=== PATIENT | male | born 1990 | race Caucasian/White ===

== ENCOUNTER 2016-09-05 20:37 | Emergency (ER) | payer OTHER ==
[~2016-09-05] VITALS: Ht 170.2 cm; Wt 63.6 kg
[2016-09-05 20:47] VITALS: BP 148/67; PULSE 122; RESP 18; O2SAT 100
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
[2016-09-05 22:28] LABS: BASOPHILS % (AUTO) 0.5 % (0-3); MONOCYTES % (AUTO) 7.6 % (4-12); Mean Corpuscular Hemoglobin 29.4 pg (27.0-35.0); Mean Corpuscular Volume 85.4 fL (81-100); NEUTROPHILS % (AUTO) 69.3 % (40-74); Platelet Count 274 bil/L (150-400)
[2016-09-05 22:29] LABS: APPEARANCE,URINE CLEAR (CLEAR,HAZY); COLOR,URINE YELLOW (YELLOW); OCCULT BLOOD,URINE NEGATIVE (NEGATIVE); UROBILINOGEN,URINE NORMAL (NORMAL)
[2016-09-05 23:22] VITALS: BP 139/84; PULSE 82; RESP 19; O2SAT 100
[2016-09-05] MEDS ORDERED: HYDR-4003 PO (23:27)
[2016-09-05 23:54] VITALS: BP 139/84; PULSE 82; RESP 19; O2SAT 100
== END 2016-09-05 23:54 | disposition home or self-care (01) ==
LOC: SED 20:37
DX: T23.001A Burn of unspecified degree of right hand, unspecified site, initial encounter (principal); T31.0 Burns involving less than 10% of body surface; W86.8XXA Exposure to other electric current, initial encounter; Y92.810 Car as the place of occurrence of the external cause; Y93.89 Activity, other specified; Y99.8 Other external cause status; Z88.0 Allergy status to penicillin; Z88.5 Allergy status to narcotic agent